=== PATIENT | female | born 2000 | race Hispanic/Latino ===

== ENCOUNTER 2024-05-28 21:55 | Emergency (ER) | payer MEDICAID ==
[~2024-05-28] VITALS: Ht 162.6 cm; Wt 83.5 kg
[2024-05-28] MEDS: morPHINE 4 MG SYG IVP ONE (22:41)
[2024-05-28] MEDS: 0.9%NACL 1000ML 1,000 ML IV ONE (22:41)
[2024-05-28 22:59] LABS: BASOPHILS # (AUTO) 0.04 K/uL (0.00-0.20); BASOPHILS % (AUTO) 0.3 % (0.0-5.0); EOSINOPHILS # (AUTO) 0.24 K/uL (0.00-0.70); EOSINOPHILS % (AUTO) 1.7 % (0.0-8.0); HEMATOCRIT 30.7 % (36-48); IMMATURE GRANULOCYTE ABSOLUTE 0.06 K/uL (0-1); LYMPHOCYTES # (AUTO) 2.4 K/uL (1.0-4.8); LYMPHOCYTES % (AUTO) 16.7 % (21.0-51.0); MEAN CORPUSCULAR HEMOGLOBIN 26.9 pg (27.0-33.0); MEAN CORPUSCULAR HGB CONC 32.9 g/dL (32.0-36.0); MEAN CORPUSCULAR VOLUME 81.6 fL (79-99); MONOCYTES # (AUTO) 0.9 K/uL (0.1-1.0); MONOCYTES % (AUTO) 6.2 % (3.0-13.0); NEUTROPHILS # (AUTO) 10.9 K/uL (1.8-7.7); NEUTROPHILS % (AUTO) 74.7 % (40.0-77.0); PLATELET COUNT (AUTO) 237 K/uL (130-400); RED BLOOD CELL COUNT(AUTO) 3.76 MIL/uL (4.00-5.50); RED CELL DISTRIBUTION WIDTH 13.2 % (11.0-15.5); WHITE BLOOD COUNT (AUTO) 14.5 K/uL (4.8-10.8)
[2024-05-28 23:07] LABS: CREATININE 0.8 mg/dL (0.5-1.0); POTASSIUM 3.3 mmol/L (3.5-5.1)
[2024-05-29] MEDS: morPHINE 4 MG SYG IVP ONE (00:19)
--- NOTE | 2024-05-29 00:30 | ERN ---
General Chief Complaint: Vaginal Bleeding Stated Complaint: ABDOMINAL PAIN Time Seen by MD: 22:03 History of Present Illness Initial Comments Mrs Rdz is 23 yr old female with a history of irregular menstrual cycles who presents today with a chief complaint of bleeding. Patient reports she has irregular menstrual cycles. Patient reports she recently had a baby back in June and only began to have menstruation in March. She reports she would not have any administration in April but then reports that she did have increased menstrual pain and bleeding the last 2 days. She reports that she has been having increase clots. Allergies: Coded Allergies: Penicillins (Unverified Allergy, Unknown, 05/28/24) Past Medical History Past Medical History: Bronchitis Past Surgical History: None Female( History) LMP: Mar 28, 2020 : 1 Para: 1 Aborts: 0 ROS Dictation Constitutional: Negative for fever,chills, and weight loss Eyes: Negative for injury, pain,redness, and discharge ENT: Negative for injury,pain or swelling Cardiovascular: Negative for chest pain, palpitations, and edema Respiratory: Negative for shortness of breath, cough, and wheezing, Abdomen/GI: Negative for abdominal pain, nausea, vomiting, diarrhea, and constipation Back: Negative for injury and pain : Positive for bleeding MS/Extremity: Negative for injury and deformity Skin: Negative for rash, and discoloration Neuro: Negative for headache, weakness, numbness, tingling, and seizure Psych: Negative for suicide ideation, homicidal ideation, and hallucinations Physical Exam Physical Exam Dictation General: awake, alert, NAD Head/Face: Normocephalic, atraumatic Eyes: PERRL, EOMI, vision at baseline ENT: oral cavity clear Neck: Trachea midline, supple, Cardiovascular: RRR, normal S1/S2, Respiratory: CTAB, no respiratory distress Abdomen: Positive for suprapubic pain Skin: Warm, dry, normal turgor, no rash MS/Extremity: Pulses equal Neuro: COAx4, GCS 15, strength 5/5 Results Laboratory and Microbiology Lab and Micro Result Laboratory Tests Test 05/28/24 22:47 White Blood Count 14.5 K/uL (4.8-10.8) H Red Blood Count 3.76 MIL/uL (4.00-5.50) L Hemoglobin 10.1 g/dL (12.0-16.0) L Hematocrit 30.7 % (36-48) L Mean Corpuscular Volume 81.6 fL (79-99) Mean Corpuscular Hemoglobin 26.9 pg (27.0-33.0) L Mean Corpuscular Hemoglobin Concent 32.9 g/dL (32.0-36.0) Red Cell Distribution Width 13.2 % (11.0-15.5) Platelet Count 237 K/uL (130-400) Mean Platelet Volume 9.8 fL (7.5-10.5) Immature Granulocyte % (Auto) 0.4 % (0-1) Neutrophils (%) (Auto) 74.7 % (40.0-77.0) Lymphocytes (%) (Auto) 16.7 % (21.0-51.0) L Monocytes (%) (Auto) 6.2 % (3.0-13.0) Eosinophils (%) (Auto) 1.7 % (0.0-8.0) Basophils (%) (Auto) 0.3 % (0.0-5.0) Neutrophils # (Auto) 10.9 K/uL (1.8-7.7) H Lymphocytes # (Auto) 2.4 K/uL (1.0-4.8) Monocytes # (Auto) 0.9 K/uL (0.1-1.0) Eosinophils # (Auto) 0.24 K/uL (0.00-0.70) Basophils # (Auto) 0.04 K/uL (0.00-0.20) Absolute Immature Granulocyte (auto 0.06 K/uL (0-1) Nucleated Red Blood Cells 0.0 % (0.0-0.19) Sodium Level 138 mmol/L (136-145) Potassium Level 3.3 mmol/L (3.5-5.1) L Chloride Level 107 mmol/L (101-111) Carbon Dioxide Level 25 mmol/L (21-32) Blood Urea Nitrogen 12 mg/dL (7-18) Creatinine 0.8 mg/dL (0.5-1.0) Glomerular Filtration Rate Calc 105 mL/min (>90) Random Glucose 109 mg/dL (70-105) H Total Calcium 8.1 mg/dL (8.5-10.1) L Serum Test, Qualitative NEGATIVE (NEGATIVE) MDM Patient has normal ultrasound. Patient will be allowed to follow up with the production support specialist. ED Course Orders Procedure Category Date Status Time Vital Signs Per CPOE 05/28/24 Transmitted Routine 22:03 Cbc With Differential LAB 05/28/24 Complete 22:03 Testing, LAB 05/28/24 Complete Serum Hcg 22:03 Type And Screen BBK 05/28/24 Complete 22:03 Iv Insertion CPOE 05/28/24 Transmitted 22:03 Basic Metabolic Panel LAB 05/28/24 Complete 22:03 Us Pelvic Non-Ob Comp US 05/28/24 Taken 22:17 Morphine 4mg Syg PHA 05/28/24 Complete (Morphine 4mg Syg) 22:30 0.9%Nacl 1000ml (Ns PHA 05/28/24 Complete 1000ml) 23:00 Morphine 4mg Syg PHA 05/29/24 Complete (Morphine 4mg Syg) 00:30 Current Medications Medications (Trade) Dose Ordered Sig/Nba Route PRN Reason Start Time Stop Time Status Last Admin Dose Admin Morphine Sulfate (Morphine 4mg Syg) 4 mg ONCE ONCE IVP 05/28/24 22:30 05/28/24 22:31 DC 05/28/24 22:41 Morphine Sulfate (Morphine 4mg Syg) 4 mg ONCE ONCE IVP 05/29/24 00:30 05/29/24 00:31 DC 05/29/24 00:19 Sodium Chloride 1,000 ml @ 0 mls/hr ONCE ONCE IV 05/28/24 23:00 05/28/24 23:01 DC 05/28/24 22:41 Vital Signs Date Time Temp Pulse Resp B/P (MAP) Pulse Ox O2 Delivery O2 Flow Rate FiO2 05/29/24 00:30 71 18 103/58 98 Room Air* 0 21 05/28/24 21:57 99.3 99 18 126/72 99 Room Air 0 DX & DISP Disposition: Discharge Departure Impression: Primary Impression: Dysfunctional uterine bleeding Condition: Stable Additional Instructions: Follow up with your production support specialist in the next 1-7 days to discuss your menstrual irregularities. Referrals: NONE (PCP) RHETT HAY MD May 29, 2024 00:30
[2024-05-29 01:12] VITALS: BP 99/62; PULSE 74; RESP 18; TEMP 98.9; O2SAT 99
--- NOTE | 2024-05-29 08:26 | HMCIMG ---
US PELVIC NON-OB COMP REASON: abd pain and bleeding COMPARISON: None TECHNIQUE: Routine pelvic sonogram was performed. FINDINGS: Uterus is 11.9 x 6.4 x 7.8 cm. Endometrium is thickened at 2.2 cm. This is a nonspecific finding, often a reflection of stage of menstrual cycle. There are no focal myometrial or endometrial masses. Both ovaries appear normal. There is normal-appearing blood flow to each ovary. There are no adnexal cysts or masses. There is no free fluid in the cul-de-sac. IMPRESSION: 1. Prominent endometrium. A 2.2 cm, a nonspecific finding as discussed above. 2. Otherwise normal exam.
== END 2024-05-29 01:14 | disposition home or self-care (01) ==
LOC: EDH 21:55
DX: N93.8 Other specified abnormal uterine and vaginal bleeding (principal); J40 Bronchitis, not specified as acute or chronic; Z88.0 Allergy status to penicillin
CPT/HCPCS: 99285; 96374; 76856; 80048; 84703; 85025; 86850; 86900; 86901; 36415; 96376; J7030; J2270 ×2